=== PATIENT | female | born 1965 | race Two or more races ===

== ENCOUNTER 2018-07-30 19:34 | Emergency (ER) | payer SELFPAY ==
[~2018-07-30] VITALS: Ht 165.1 cm; Wt 72.6 kg
--- NOTE | 2018-07-30 20:09 | NUR ---
ED Nurse Note: pt walked in c/o lower back pain, states she was bending to grab something and started having pain since yesterday afternoon, denies radiation. no deformity nor contusion noted, noted tenderness on lower mid back. will cont monitor.
--- NOTE | 2018-07-30 20:09 | NUR ---
[place] in [place] - 07/30/18 at 2009 by MOOSE -CONCETTA Pardo Note:
[2018-07-30] MEDS ORDERED: Methocarbamol 750mg tab ORAL ONE (20:15)
[2018-07-30 20:16] VITALS: BP 116/80
[2018-07-30] MEDS ORDERED: LIDODERM700 M1 TOPIC (20:38)
[2018-07-30] MEDS ORDERED: IBUPROFEN600 MG ORAL (20:38)
[2018-07-30] MEDS ORDERED: ROBAXIN-750750 MG PO (20:38)
--- NOTE | 2018-07-30 20:47 | NUR ---
ED Nurse Note: pt cleared to be d/c per ERMD, pt discharge and aftercare instruction provided w/ prescription, pt education done via discussion and handout, pt advised to follow up with pcp or return if changes in condition, pt verbalized understanding and agrees with plan, vss, ambulatory w/ steady gait, left w/ all belongings, ID band removed. pt accompanied by .
[2018-07-30 20:57] VITALS: BP 116/80
--- NOTE | 2018-08-01 07:51 | Emergency Room Report ---
History of Present Illness General Chief Complaint: Lower Back Pain or Injury Source: Patient Present Illness HPI 53-year-old female presents ED for evaluation. Patient complaining of lower back pain started yesterday. states pain started after she bent over to lift an object. Pain is sharp, 7 out of 10, nonradiating. Denies bowel or bladder incontinence. Denies any leg or motor weakness. Denies flank pain. Denies nausea or vomiting. No other aggravating relieving factors. Denies any other associated symptoms Allergies: Coded Allergies: PENICILLINS (Verified Allergy, Unknown, 07/30/18) Patient History Past Medical History: none Past Surgical History: none Pertinent Family History: none Social History: Denies: smoking, alcohol use, drug use Last Menstrual Period: 06/2018 Now: No Immunizations: UTD Reviewed Nursing Documentation: PMH: Agreed; PSxH: Agreed Nursing Documentation-PMH Past Medical History: No Stated History Review of Systems All Other Systems: negative except mentioned in HPI Physical Exam Vital Signs Date Time Temp Pulse Resp B/P (MAP) Pulse Ox O2 Delivery O2 Flow Rate FiO2 07/30/18 20:03 97.5 80 16 116/80 99 Room Air Sp02 EP Interpretation: reviewed, normal General Appearance: no apparent distress, alert, GCS 15, non-toxic Head: normocephalic, atraumatic Eyes: bilateral eye normal inspection, bilateral eye PERRL ENT: hearing grossly normal, normal pharynx, no angioedema, normal voice Neck: full range of motion, supple/symm/no masses Respiratory: chest non-tender, lungs clear, normal breath sounds, speaking full sentences Cardiovascular #1: regular rate, rhythm, no edema Cardiovascular #2: 2+ carotid (R), 2+ carotid (L), 2+ radial (R), 2+ radial (L) , 2+ dorsalis pedis (R), 2+ dorsalis pedis (L) Gastrointestinal: normal bowel sounds, non tender, soft, non-distended, no guarding, no rebound Rectal: deferred Genitourinary: normal inspection, no CVA tenderness, no vertebral tenderness Musculoskeletal: back normal, gait/station normal, normal range of motion, tender - paraspinal lumbar tenderness Neurologic: alert, oriented x3, responsive, motor strength/tone normal, sensory intact, speech normal Psychiatric: judgement/insight normal, memory normal, mood/affect normal, no suicidal/homicidal ideation Reflexes: 3+ bicep (R), 3+ bicep (L), 3+ tricep (R), 3+ tricep (L), 3+ knee (R) , 3+ knee (L) Skin: normal color, no rash, warm/dry, well hydrated Lymphatic: no adenopathy Medical Decision Making Diagnostic Impression: Primary Impression: Low back pain Qualified Codes: M54.5 - Low back pain ER Course Hospital Course 53-year-old female presents ED complaining of lower back pain Differential diagnoses include: pyelonephritis, kidney stone, muscle strain, Lspine fracture Clinical course Patient placed on stretcher. After initial history, physical exam reveals female in no acute distress. There is no vertebral body tenderness on exam. Some paraspinal lumbar tenderness noted. No flank pain. No step-off. 5 out of 5 motor strength in both legs. No sensory deficits. Discussed findings with patient. I ordered Toradol, Robaxin, Lidoderm patch. Upon reassessment patient states pain has improved. Pain is muscular and imaging not required at this time. Patient will be safely discharged to home. [place] We will also provide clinic referral information while patient is here Diagnosis - back pain Stable and discharged to home with prescription for Motrin, Robaxin, lidoderm. Followup with PMD. Return to ED if symptoms recur or worsen Last Vital Signs Date Time Temp Pulse Resp B/P (MAP) Pulse Ox O2 Delivery O2 Flow Rate FiO2 07/30/18 20:57 97.5 80 16 116/80 99 Room Air Status: improved Disposition: HOME, SELF-CARE Condition: Stable Scripts Lidocaine (Lidoderm) 1 Each Adh..patch 1 PATCH TOPIC DAILY, #7 PATCH 0 Refills Patch(es) may remain in place for up to 12 hours in any 24-hour period. Prov: Gregg Mallory MD 07/30/18 Methocarbamol* (ROBAXIN-750*) 750 Mg Tablet 750 MG PO TID, #21 TAB 0 Refills Prov: Gregg Mallory MD 07/30/18 Ibuprofen* (MOTRIN*) 600 Mg Tablet 600 MG ORAL Q8H PRN for For Pain, #30 TAB 0 Refills Prov: Gregg Mallory MD 07/30/18 Referrals: NOT CHOSEN IPA/,REFERRING (PCP) [facility] Ximena Lui. [facility] Patient Instructions: Low Back Sprain With [facility] Gregg Mallory MD Aug 01, 2018 07:51
== END 2018-07-30 20:45 | disposition home or self-care (01) ==
LOC: EMR 20:45
DX: M54.5 Low back pain (principal); Z88.0 Allergy status to penicillin
CPT/HCPCS: 99282